=== PATIENT | male | born 1950 | race Caucasian/White ===

== ENCOUNTER → 2016-08-14 09:52 | Day surgery (SDC) | payer BC ==
[~2016-08-14 09:52] MED LIST: Buffered Lidocaine 1% SYRIN* 3 ML/SYR SYRINGE INTRADERM ONE; Dexamethasone IV* 4 MG/ML 1 ML (4 MG) ONE; EPHEDrine (Pressors)* 50 MG/ML VIAL ONE; Famotidine IV* 10 MG/ML 2 ML (20 mg) IV ONE; Famotidine IV* 10 MG/ML 2 ML (20 mg) ONE; KETAMINE HCL* 50 MG/ML 10 ML VIAL ONE; Lidocaine 2% EPI 1:200000 MPF* 20 ML VIAL ONE; Lidocaine 2% PF* 5 ML VIAL ONE; Methylene Blue 1% (ANTIDOTE)* 10 MG/ML 1 ML SDV VIAL IVPB ONE; Midazolam* 1 MG/ML 5 ML VIAL (5 MG) ONE; Morphine INJ* 2 MG/ML 1 ML SYRINGE IV PRN; Ondansetron INJ* 2 MG/ML VIAL ONE; PROCHLORPERAZINE INJ 5 MG/ML 2 ML VIAL IV PRN; Propofol* 10 MG/ML 20 ML BTL IV PUSH ONE; Scopolamine 1.5 mg* PATCH TRANSDERM PRN; Scopolomine PATCH Remove* 1 NOTE MISC PATCH OFF ONE; fentaNYL* 50 MCG/ML 2 ML VIAL (100 MCG VIAL) IV PRN; fentaNYL* 50 MCG/ML 2 ML VIAL (100 MCG VIAL) ONE; oxyCODONE/Acetamin 5/325 MG* TAB PO PRN
[2016-08-14 13:00] VITALS: BP 114/70
--- NOTE | 2016-08-15 12:19 | OP ---
DATE OF OPERATION: 08/14/16 - [facility] DATE OF : 52 SURGEON: German Booker MD ANESTHESIOLOGIST: Pedro Marina MD ANESTHESIA: General PRE-OP DIAGNOSIS: Posterior neck mass. POST-OP DIAGNOSIS: Posterior neck mass. OPERATIVE PROCEDURE: Excision subfascial neck mass. BRIEF HISTORY: This is a 55-year-old gentleman presenting with slowly enlarging neck posterior mass; elected for surgical management. DESCRIPTION OF PROCEDURE: The patient was taken to the operating room. General anesthetic given. The patient was intubated with an LMA. The neck was then prepped and draped in the usual fashion. A small incision was made approximately 4 cm. Submucosal flaps were created carefully. Blunt and sharp dissection of the mass was carried out. Hemostasis was obtained. Wound was copiously irrigated, closed in 2 layers. A small dressing was applied. The patient was sent to recovery room in stable condition after being extubated. [id number] #: [id number] MTDD
== END | disposition home or self-care (01) ==
LOC: OR 09:52
PROVIDERS: ATTEND Otolaryngology
DX: D17.0 Benign lipomatous neoplasm of skin and subcutaneous tissue of head, face and neck (principal)
CPT/HCPCS: 88304; J1100; J2250; J2405; J2704; J3010

== ENCOUNTER 2017-08-21 10:18 | Emergency (ER) | payer BC, OTHER ==
[2017-08-21] MEDS ORDERED: Tetan/Diph/Pertus SYR(Tdap)* 0.5 ML SYR(BOOSTRIX) use SYR IM ONE (10:36)
--- NOTE | 2017-08-21 10:36 | ED ---
Laceration/Wound HPI - HPI Summary HPI Summary: 66-year-old male presents with left arm laceration today. He was at work and a branch fell and struck his left arm. He denies any foreign body in the wound. He has full range of motion of his arm. He denies any numbness tingling. He is unsure his last tetanus is. The area continues to bleed. He denies any other injury. He has minimal pain. - History of Current Complaint Stated Complaint: RT ARM LAC Time Seen by Provider: 08/21/17 10:29 Pain Intensity: 1 - Allergy/Home Medications Allergies/Adverse Reactions: Allergies Allergy/AdvReac Type Severity Reaction Status Date / Time No Known Allergies Allergy Verified 08/21/17 10:22 Home Medications: Home Medications NK [No Home Medications Reported] 08/21/17 [History Confirmed 08/21/17] PMH/Surg Hx/FS Hx/Imm Hx Endocrine/Hematology History: Denies: Hx Diabetes, Hx Systemic Lupus Erythematosus Cardiovascular History: Denies: Hx Congestive Heart Failure, Hx Hypertension, Hx Pacemaker/ICD History: Reports: Other Problems/Disorders - HX OF BENIGN PROSTATE HYPERTROPHY- HAD PROCEDURE TO SHRINK PROSTATE Denies: Hx Dialysis, Hx Renal Disease Musculoskeletal History: Denies: Hx Rheumatoid Arthritis Sensory History: Denies: Hx Contacts or Glasses, Hx Hearing Aid Opthamlomology History: Denies: Hx Contacts or Glasses - Cancer History Hx Chemotherapy: No - Surgical History Surgery Procedure, Year, and Place: RIGHT INGUINAL HERNIA REPAIR,. ARTHROSCPOIC RIGHT KNEE. 2016-BLADDER STONE REMOVAL- [facility] [place]. 2016-EMBOLIZATION OF PROSTATIC ARTERIES- [place]- 2016 Hx Anesthesia Reactions: No Infectious Disease History: No Infectious Disease History: Denies: Traveled Outside the [place] in Last 30 Days - Social History Alcohol Use: Weekly Alcohol Amount: 5 PER WEEK Substance Use Type: Reports: None Smoking Status (MU): Never Smoked Tobacco Review of Systems Negative: Fever Negative: Chest Pain Negative: Shortness Of Breath Positive: Other - left arm laceration All Other Systems Reviewed And Are Negative: Yes Physical Exam Triage Information Reviewed: Yes Vital Signs On Initial Exam: Initial Vitals Temp Pulse Resp BP Pulse Ox 98.6 F 75 16 113/74 97 08/21/17 10:22 08/21/17 10:22 08/21/17 10:22 08/21/17 10:22 08/21/17 10:22 Vital Signs Reviewed: Yes Appearance: Positive: Well-Appearing Skin: Positive: Warm, Dry, Other - 5 cm by half centimeter flap-like laceration of left forearm Head/Face: Positive: Normal Head/Face Inspection Eyes: Positive: Normal, Conjunctiva Clear Respiratory/Lung Sounds: Positive: Clear to Auscultation, Breath Sounds Present Cardiovascular: Positive: Normal, RRR Musculoskeletal: Positive: Strength/ROM Intact - Left lower, Other - Pulses, capillary refill less than 2 seconds, good sensation Neurological: Positive: Normal Psychiatric: Positive: Normal Procedures - Laceration/Wound Repair 1 Location: Other - left arm Description: Irregular Anesthesia: Local, 1.0%, Epi Length, Depth and Shape: 5 cm by half centimeter flap-like laceration Irrigated w/ Saline (ccs): 500 Laceration/Wound Explored: no foreign body removed Closure: Single Layer Suture Type: Prolene - 4-0 Number of Sutures: 7 Layer Closure?: No Sterile Dressing Applied?: Yes - telfa and guerrero Diagnostics - Vital Signs Vital Signs Temp Pulse Resp BP Pulse Ox 08/21/17 10:22 98.6 F 75 16 113/74 97 - Laboratory Lab Statement: Any lab studies that have been ordered have been reviewed, and results considered in the medical decision making process. Laceration Repair Course/Dx - Course Course Of Treatment: 66-year-old male presents with left arm laceration today. He was at work and a branch fell and struck his left arm. He denies any foreign body in the wound. He has full range of motion of his arm. He denies any numbness tingling. He is unsure his last tetanus is. The area continues to bleed. He denies any other injury. He has minimal pain. On exam has 5 cm irregular flap-like laceration to left forearm. Neurovascular intact. Full range of motion arm. Cleaned and placed 7 sutures in area. Gave tetanus. Patient understands agrees with plan. - Differential Dx Differental Diagnoses: Abrasion, Avulsion, Laceration - Clinical Impression Provider Diagnoses: Laceration of left upper arm Discharge - Sign-Out/Discharge Documenting (check all that apply): Discharge - Discharge Plan Condition: Good Disposition: HOME Patient Education Materials: Care For Your Stitches (ED) Referrals: Maria Elena,Maury L III, BRAIL[facility]ODER [Primary Care Provider] - Additional Instructions: Take Tylenol or ibuprofen for pain Keep area clean and dry for 24 hours Return to ED or primary in 10-14 days to have sutures removed Return to ED if develop signs of infection such as fever, spreading redness, or pus. - Billing Disposition and Condition Condition: GOOD Disposition: HOME
[2017-08-21 11:34] VITALS: BP 113/72
== END 2017-08-21 11:17 | disposition home or self-care (01) ==
LOC: ED 10:18
DX: S51.812A Laceration without foreign body of left forearm, initial encounter (principal); W20.8XXA Other cause of strike by thrown, projected or falling object, initial encounter; Y92.9 Unspecified place or not applicable
CPT/HCPCS: 12002; 90471; 90715; 99282

== ENCOUNTER 2023-11-19 16:32 | Observation (INO) ==
[2023-11-19] MEDS: Morphine 4 MG/ML VIAL (1 ml) IV ONE ×2 (17:19→20:38)
[2023-11-19] MEDS: Ondansetron 4 mg VIAL 2 MG/ML 2 ml VIAL IV ONE ×2 (17:19→20:38)
[2023-11-19 17:27] LABS: ABS Basophils 0.1 10^3/uL (0.0-0.1); ABS Eosinophils 0.1 10^3/uL (0.0-0.5); ABS Monocytes 0.5 10^3/uL (0.0-1.1); ABS Neutrophils 7.3 10^3/uL (1.5-7.6); Eosinophil % 0.9 %; Hematocrit 38.9 % (38-53); Hemoglobin 13.1 g/dL (13.2-16.3); Lymphocyte % 11.3 %; Mean Corpuscular Hemoglobin 31.7 pg (27-33); Mean Corpuscular Hgb Conc 33.8 g/dL (31-36); Mean Corpuscular Volume 93.8 fL (80-97); Mean Platelet Volume 7.2 fL (7.5-11.2); Platelet Count 355 10^3/uL (150-450); Red Blood Count 4.15 10^6/uL (4.06-5.63)
[2023-11-19 17:46] LABS: Albumin 3.4 g/dL (3.2-5.2); Albumin/Globulin Ratio 1.3 (1-3); C Reactive Protein 70.56 mg/L (<8.01); Calcium 8.9 mg/dL (8.6-10.3); Creatinine, Serum 0.83 mg/dL (0.67-1.17); Globulin 2.6 g/dL (2-4); Potassium 4.2 mmol/L (3.5-5.0); Total Bilirubin 0.5 mg/dL (0.2-1.0)
[2023-11-19] MEDS: Lactated Ringers 1000 ml BAG 1,000 ML IV ONE (18:15)
[2023-11-19 18:40] LABS: Urine Appearance Clear; Urine Bilirubin Negative (Negative); Urine Blood Negative (Negative); Urine Color Yellow; Urine Glucose Negative (Negative); Urine Ketones 2+ (Negative); Urine Nitrite Negative (Negative); Urine Protein Trace (Negative); Urine Specific Gravity 1.017 (1.002-1.030); Urine Urobilinogen Negative (Negative)
[2023-11-19 18:46] LABS: INR 1.17 (0.83-1.13)
[2023-11-19] MEDS: Iohexol 350 (CONTRAST) 500 ML MDV IV ONE (19:26)
[2023-11-19] MEDS: Ciprofloxacin 400mg IVPREMIX 400 MG/200 ML BAG IVPB ONE (21:40)
[2023-11-19] MEDS ORDERED: Enoxaparin 40 MG/0.4 ML SYR SUBCUT SCH (23:00)
[2023-11-19] MEDS: metroNIDAZOLE IV 500 MG/100ML 500 MG/100 ML BAG IVPB ONE (23:50)
[2023-11-20] MEDS ORDERED: cefTRIAXone 1 gm/50 mL D5W 1 GM/50 ML BAG IV SCH (00:15)
[2023-11-20] MEDS: PEG 3000 GI LAVAGE 1 GALLON PO ONE (00:33)
[2023-11-20] MEDS: Morphine 2 MG/ML SYRINGE IV PRN ×2 (00:43→07:11)
[2023-11-20] MEDS: cefTRIAXone 2 gm/50 mL D5W 2 GM/50 ML BAG IV SCH (01:06)
[2023-11-20 06:54] LABS: ABS Basophils 0.1 10^3/uL (0.0-0.1); ABS Eosinophils 0.1 10^3/uL (0.0-0.5); ABS Lymphocytes 0.8 10^3/uL (1.0-4.8); ABS Monocytes 0.5 10^3/uL (0.0-1.1); ABS Neutrophils 7.1 10^3/uL (1.5-7.6); Eosinophil % 0.6 %; Hematocrit 36.5 % (38-53); Hemoglobin 12.8 g/dL (13.2-16.3); Lymphocyte % 9.4 %; Mean Corpuscular Hemoglobin 32.8 pg (27-33); Mean Corpuscular Volume 93.6 fL (80-97); Mean Platelet Volume 7.1 fL (7.5-11.2); Platelet Count 309 10^3/uL (150-450); Red Cell Distribution Width 12.5 % (12-17); White Blood Count 8.5 10^3/uL (3.6-10.2)
[2023-11-20 07:27] LABS: Calcium 8.3 mg/dL (8.6-10.3); Creatinine, Serum 0.69 mg/dL (0.67-1.17); Potassium 3.9 mmol/L (3.5-5.0); eGFR CKD-EPI 98.3 (>60)
[2023-11-20] MEDS: Lactated Ringers 1000 ml BAG 1,000 ML IV ONE (07:31)
[2023-11-20] MEDS: metroNIDAZOLE IV 500 MG/100ML 500 MG/100 ML BAG IVPB SCH (14:02)
[2023-11-21 06:20] LABS: ABS Eosinophils 0.1 10^3/uL (0.0-0.5); ABS Lymphocytes 1.2 10^3/uL (1.0-4.8); ABS Monocytes 0.4 10^3/uL (0.0-1.1); ABS Neutrophils 4.9 10^3/uL (1.5-7.6); ABS Nucleated RBC 0.01 10^3/ul; Eosinophil % 1.6 %; Hematocrit 31.3 % (38-53); Lymphocyte % 18.1 %; Mean Corpuscular Hemoglobin 32.9 pg (27-33); Mean Corpuscular Hgb Conc 35.2 g/dL (31-36); Mean Corpuscular Volume 93.4 fL (80-97); Mean Platelet Volume 7.5 fL (7.5-11.2); Nucleated Red Blood Cells % 0.1 %/100WBC (0.0-0.8); Platelet Count 296 10^3/uL (150-450); Red Blood Count 3.35 10^6/uL (4.06-5.63); Red Cell Distribution Width 12.8 % (12-17); White Blood Count 6.5 10^3/uL (3.6-10.2)
[2023-11-21] MEDS ORDERED: Midazolam 10 mg/10 ml VIAL 1 mg/ml 10 ml VIAL (10 mg) ONE (11:25)
[2023-11-21] MEDS ORDERED: fentaNYL 100 mcg/2 ml 50 MCG/ML VIAL ONE (11:25)
[2023-11-21 14:19] VITALS: BP 117/73
[2023-11-23 00:42] LABS: Anaplasma phagocytophilum Negative (Negative); B. miyamotoi PCR, B Negative (Negative); Babesia divergens/MO-1 Negative (Negative); Babesia ducani Negative (Negative); Ehrlichia chaffeensis Negative (Negative); Ehrlichia ewingii/canis Negative (Negative); Ehrlichia muris eauclairensis Negative (Negative)
[2023-11-24 19:36] LABS: IgG Immunoblot Positive (Negative); IgM Immunoblot Positive (Negative)
== END 2023-11-21 18:12 | disposition home or self-care (01) ==
LOC: EDHOLD 16:32 → ED 16:32 → SUATTDRO 20:58 → SSU 22:54
PROVIDERS: ADMIT Internal Medicine; ATTEND Internal Medicine